=== PATIENT | male | born 1975 | race African-American/Black ===

== ENCOUNTER 2018-09-03 14:00 | Emergency (ER) | payer OTHER ==
[2018-09-03] MEDS ORDERED: ONDANSETRON HCL INJ/PF 4 MG/2 ML SDV IV ONE (15:02)
[2018-09-03] MEDS ORDERED: NORMAL SALINE 1000 ML 1,000 ML IV ONE (15:02)
--- NOTE | 2018-09-03 15:02 | ER Document Report ---
ED Medical Screen (RME) - General Chief Complaint: Headache >24 hrs old Stated Complaint: HEADACHE Time Seen by Provider: 09/03/18 14:55 TRAVEL OUTSIDE OF THE [place] IN LAST 30 DAYS: No - HPI Notes: 09/03/18 15:03 Patient is a 42 yr old male that presents to the emergency department for chief complaint of worst headache of life, started approximately 4 days ago, reports nausea is states he does not have a history of headaches. headache is frontal. Father from a brain aneurysm at age 56. Does not have a primary care provider. not eating but drinking minimally. Denies fevers, chills, c hest pain,palpitations, shortness of breath, dyspnea, nausea, vomiting, diarrhea, abdominal pain, hematuria,blurred vision, double vision, loss of vision, speech changes, LH, dizziness, syncope, neck pain, weakness, bowel or bladder dysfunction, saddle anesthesia, numbness or tingling in bilateral upper or lower extremities equally, muscle paralysis, weakness in bilateral upper or lower extremities equally or rash. ROS: Other than noted above, the 12 point review of systems was reviewed with the patient and were negative, all pertinent findings are included in the HPI. PHYSICAL EXAMINATION: Vital signs reviewed. GENERAL: Well-appearing, well-nourished and in no acute distress. HEAD: Atraumatic, normocephalic. NECK: Normal range of motion CV: Heart regular rate and rhythm LUNGS: No respiratory distress Musculoskeletal: Normal range of motion NEUROLOGICAL: Normal speech, normal gait PSYCH: Normal mood, normal affect. MDM: Patient seen and examined for rapid initial assessment. Vital signs reviewed. A comprehensive ED assessment and evaluation of the patient, analysis of test results and completion of the medical decision making process will be conducted by additional ED providers. *Note is created using voice recognition software and may contain spelling, syntax or grammatical errors. 09/03/18 15:05 09/03/18 15:09 - Related Data Allergies/Adverse Reactions: No Known Allergies Allergy (Verified 09/03/18 14:15) Physical Exam - Vital signs Vitals: Temp Pulse Resp BP Pulse Ox 99.1 F 84 20 158/87 H 96 09/03/18 14:20 09/03/18 14:20 09/03/18 14:20 09/03/18 14:20 09/03/18 14:20 Course - Vital Signs Vital signs: Temp Pulse Resp BP Pulse Ox 99.1 F 84 20 158/87 H 96 09/03/18 14:20 09/03/18 14:20 09/03/18 14:20 09/03/18 14:20 09/03/18 14:20
[2018-09-03 15:46] LABS: ABSOLUTE LYMPHOCYTES (AUTO) 1.2 10^3/uL (0.5-4.7); ABSOLUTE MONOCYTES (AUTO) 1.1 10^3/uL (0.1-1.4); ABSOLUTE NEUT (AUTO) 5.6 10^3/uL (1.7-8.2); BASOPHILS % (AUTO) 0.3 % (0-2); EOSINOPHILS % (AUTO) 0.1 % (0-6); HEMATOCRIT 45.7 % (37.9-51.0); HEMOGLOBIN 15.8 g/dL (13.5-17.0); MEAN CORPUSCULAR HGB CONC 34.5 g/dL (32.0-36.0); MEAN CORPUSCULAR VOLUME 78 fl (80-97); MONOCYTES % (AUTO) 13.5 % (3-13); PLATELET COUNT 183 10^3/uL (150-450); RED BLOOD COUNT 5.84 10^6/uL (4.35-5.55); RED CELL DISTRIBUTION WIDTH 13.8 % (11.5-14.0); SEGMENTED NEUTROPHILS % (AUTO) 71.1 % (42-78); TOTAL CELLS COUNTED % (AUTO) 100 %; WHITE BLOOD COUNT 7.8 10^3/uL (4.0-10.5)
[2018-09-03 15:51] LABS: INTERNATIONAL RATION (INR) 1.01; PROTHROMBIN TIME 13.3 SEC (11.4-15.4)
[2018-09-03 15:52] LABS: PARTIAL THROMBOPLASTIN TIME 25.4 SEC (23.5-35.8)
[2018-09-03 16:02] LABS: ALANINE AMINOTRANSFERASE 25 U/L (21-72); ALBUMIN 4.5 g/dL (3.5-5.0); ALKALINE PHOSPHATASE 67 U/L (38-126); ANION GAP 9 (5-19); ASPARTATE AMINO TRANSFERASE 27 U/L (17-59); BILIRUBIN,DIRECT 0.2 mg/dL (0.0-0.4); BILIRUBIN,TOTAL 0.6 mg/dL (0.2-1.3); BLOOD UREA NITROGEN 12 mg/dL (7-20); CALCIUM 9.8 mg/dL (8.4-10.2); CARBON DIOXIDE 30 mmol/L (22-30); CHLORIDE 100 mmol/L (98-107); GLUCOSE 123 mg/dL (75-110); POTASSIUM 4.2 mmol/L (3.6-5.0); SODIUM 138.6 mmol/L (137-145); TOTAL PROTEIN 8.1 g/dL (6.3-8.2)
--- NOTE | 2018-09-03 16:31 | RADIOLOGY REPORT (SQ) ---
EXAM DESCRIPTION: CT HEAD WITHOUT COMPLETED DATE/TIME: 09/03/2018 4:20 pm REASON FOR STUDY: worst BOLAÑOS of life, no hx of BOLAÑOS COMPARISON: None. TECHNIQUE: Axial images acquired through the brain without intravenous contrast. Images reviewed wi th bone, brain and subdural windows. Additional sagittal and coronal reconstructions were generated. Images stored on PACS. All CT scanners at this facility use dose modulation, iterative reconstruction, and/or weight based d osing when appropriate to reduce radiation dose to as low as reasonably achievable (ALARA). [facility]: Dose Right [facility]: CareDose [facility]: Dose Right [facility]: Teradose 4D [facility]: Vinny RADIATION DOSE: CT Rad equipment meets quality standard of care and radiation dose reduction techniq ues were employed. CTDIvol: 53.2 mGy. DLP: 991 mGy-cm. mGy. LIMITATIONS: None. FINDINGS: VENTRICLES: Normal size and contour. CEREBRUM: No masses. No hemorrhage. No midline shift. No evidence for acute infarction. Normal gra y/white matter differentiation. No areas of low density in the white matter. CEREBELLUM: No masses. No hemorrhage. No alteration of density. No evidence for acute infarction. EXTRAAXIAL SPACES: No fluid collections. No masses. ORBITS AND GLOBE: No intra- or extraconal masses. Normal contour of globe without masses. CALVARIUM: No fracture. PARANASAL SINUSES: No fluid or mucosal thickening. SOFT TISSUES: No mass or hematoma. OTHER: No other significant finding. IMPRESSION: NORMAL BRAIN CT WITHOUT CONTRAST. EVIDENCE OF ACUTE STROKE: NO. COMMENT: Quality ID # [id number]: Final reports with documentation of one or more dose reduction techniques (e.g., Automated exposure control, adjustment of the mA and/or kV according to patient size, use of iterative reconstruction technique) TECHNICAL DOCUMENTATION: JOB ID: [id number]- All Rights Reserved Reading location - IP/workstation name: [email or web address]
[2018-09-03] MEDS ORDERED: METOCLOPRAMIDE HCL INJ/PF 10 MG/2 ML SDV IV ONE (19:53)
[2018-09-03] MEDS ORDERED: RINGERS SOLUTION,LACTATED 1,000 ML IV ONE (19:53)
[2018-09-03] MEDS ORDERED: DIPHENHYDRAMINE HCL 50 MG/ML VIAL IV ONE (19:53)
[2018-09-03] MEDS ORDERED: DIAZEPAM 5 MG TABLET PO ONE (19:58)
--- NOTE | 2018-09-03 19:58 | ER Document Report ---
ED General - General Chief Complaint: Headache >24 hrs old Stated Complaint: HEADACHE Time Seen by Provider: 09/03/18 14:55 Mode of Arrival: Ambulatory Information source: Patient, Relative Notes: 42-year-old male with no reported past medical history presents with complaint of headache that started 4 days prior to arrival. Patient states that his headache was gradual in onset and started Saturday evening. The patient was able to go to sleep but then when he awoke noticed that he still had a headache which he states is located on the top of his head and described as an intermittent throbbing pain. Patient states that he went to the beach all day Saturday and was out in the heat for several hours and reports that the headache persisted. Patient reports photophobia and nausea but denies any vomiting, fever, sick contacts, neck pain, slurred speech, difficulty with ambulation, trauma to the head. Patient has tried taking 400 mg of Motrin this afternoon without relief. He takes no medications daily. He does report that his father of a brain aneurysm at the age of 56. Patient also reports associated nasal congestion. Patient is here from [place] on vacation with his family. TRAVEL OUTSIDE OF THE [place] IN LAST 30 DAYS: No - HPI Onset: Other Onset/Duration: Gradual, Persistent, Worse Quality of pain: Throbbing Severity: Moderate Pain Level: 2 Associated symptoms: Headache, Sinus pain/drainage. denies: Fever Exacerbated by: Coughing, Other - Laughing Relieved by: Denies Similar symptoms previously: No Recently seen / treated by doctor: No - Related Data Allergies/Adverse Reactions: No Known Allergies Allergy (Verified 09/03/18 14:15) Past Medical History - General Information source: Patient - Social History Smoking Status: Never Smoker Frequency of alcohol use: Rare Drug Abuse: None Lives with: Spouse/Significant other Family History: Reviewed & Not Pertinent Patient has suicidal ideation: No Patient has homicidal ideation: No - Medical History Medical History: Negative Renal/ Medical History: Denies: Hx Peritoneal Dialysis Review of Systems - Review of Systems Notes: REVIEW OF SYSTEMS: CONSTITUTIONAL : Denies fever, chills, or sweats. Denies recent illness. Denies weight loss, recent hospitalizations. EENT: Denies visual changes, eye pain. Denies sore throat, oral lesions, difficulty swallowing. CARDIOVASCULAR: Denies chest pain. Denies palpitations. Denies lower extremity edema. RESPIRATORY: Denies cough. Denies shortness of breath, wheezing. GASTROINTESTINAL: Denies abdominal pain or distention. Denies nausea, vomiting, or diarrhea. Denies blood in vomitus, stools, or per rectum. Denies black, tarry stools. Denies constipation. GENITOURINARY: Denies difficulty urinating, painful urination, frequency, blood in urine, testicular pain or penile discharge. MUSCULOSKELETAL: Denies back or neck pain or stiffness. Denies joint pain or swelling. SKIN: Denies rash, lesions or sores. HEMATOLOGIC : Denies easy bruising or bleeding. LYMPHATIC: Denies swollen glands. NEUROLOGICAL: Denies confusion or altered mental status. Denies loss of consciousness. Denies dizziness or lightheadedness. Denies weakness or paralysis. Denies problems difficulty with ambulation, slurred speech. Denies sensory loss, numbness, or tingling. Denies seizures. PSYCHIATRIC: Denies anxiety or stress. Denies depression, suicidal ideation, or Physical Exam - Vital signs Vitals: Temp Pulse Resp BP Pulse Ox 99.1 F 84 20 158/87 H 96 09/03/18 14:20 09/03/18 14:20 09/03/18 14:20 09/03/18 14:20 09/03/18 14:20 - Notes Notes: PHYSICAL EXAMINATION: GENERAL: Well-appearing, well-nourished and in no acute distress. HEAD: Atraumatic, normocephalic. EYES: Pupils equal round and reactive to light, extraocular movements intact, sclera anicteric, conjunctiva are normal. ENT: Nares patent, oropharynx clear without exudates. Moist mucous membranes. NECK: Normal range of motion, supple without lymphadenopathy. No nuchal rigidity, meningismus. LUNGS: Breath sounds clear to auscultation bilaterally and equal. No wheezes rales or rhonchi. HEART: Regular rate and rhythm without murmurs ABDOMEN: Soft, nontender, nondistended abdomen. No guarding, no rebound. No masses appreciated. Musculoskeletal: Normal range of motion, no pitting or edema. No cyanosis. NEUROLOGICAL: Cranial nerves grossly intact. Normal speech, normal gait. Normal sensory, motor exams PSYCH: Normal mood, normal affect. SKIN: Warm, Dry, normal turgor, no rashes or lesions noted. Course - Re-evaluation Re-evalutation: 09/03/18 19:58 Laboratory 09/03/18 09/03/18 09/03/18 15:20 15:20 15:20 WBC 7.8 RBC 5.84 H Hgb 15.8 Hct 45.7 MCV 78 L MCH 27.0 MCHC 34.5 RDW 13.8 Plt Count 183 Seg Neutrophils % 71.1 Lymphocytes % 15.0 Monocytes % 13.5 H Eosinophils % 0.1 Basophils % 0.3 Absolute Neutrophils 5.6 Absolute Lymphocytes 1.2 Absolute Monocytes 1.1 Absolute Eosinophils 0.0 Absolute Basophils 0.0 PT 13.3 INR 1.01 APTT 25.4 Sodium 138.6 Potassium 4.2 Chloride 100 Carbon Dioxide 30 Anion Gap 9 BUN 12 Creatinine 0.86 Est GFR ( Amer) > 60 Est GFR (Non-Af Amer) > 60 Glucose 123 H Calcium 9.8 Total Bilirubin 0.6 Direct Bilirubin 0.2 Neonat Total Bilirubin Not Reportable Neonat Direct Bilirubin Not Reportable Neonat Indirect Bili Not Reportable AST 27 ALT 25 Alkaline Phosphatase 67 Total Protein 8.[address] 09/03/18 15:02 IMPRESSION: NORMAL BRAIN CT WITHOUT CONTRAST. EVIDENCE OF ACUTE STROKE: NO. Temp Pulse Resp BP Pulse Ox 99.1 F 84 20 158/87 H 96 09/03/18 14:20 09/03/18 14:20 09/03/18 14:20 09/03/18 14:20 09/03/18 14:20 09/03/18 21:23 Patient reports improvement of his headache after receiving Reglan, Benadryl and IV fluids. He currently rates his headache as a 2. He appears comfortable, nontoxic. He has no nuchal rigidity, neuro deficits. Exam is completely normal. CT of the head shows no acute process. CTA was obtained due to the patient's family history of aneurysm. Awaiting results. I did speak to the patient regarding the next step being a lumbar puncture if he does not have complete resolution of his headache. Patient is declining at this time. 09/03/18 21:31 CTA reviewed and showed no evidence of aneurysm. Did discuss lumbar puncture again with the patient and his significant other who is at the bedside and the patient is declining. Patient's headache was not acute in onset, pain was not maximal at time of onset or associated with fever or trauma. Patient has no other symptoms except for nasal congestion. Patient was provided copies of all of his imaging that was performed today and encouraged to return if headache persists, he develops a fever or any other symptoms concerning to him. 09/03/18 21:47 Patient was discharged home in stable condition and encouraged to return if headache persists. - Vital Signs Vital signs: Temp Pulse Resp BP Pulse Ox 98.1 F 67 16 139/98 H 100 09/03/18 20:49 09/03/18 20:49 09/03/18 20:49 09/03/18 20:49 09/03/18 20:49 - Laboratory Result Diagrams: 09/03/18 15:20 09/03/18 15:20 Laboratory results interpreted by me: 09/03/18 09/03/18 09/03/18 15:20 15:20 19:58 RBC 5.84 H MCV 78 L Monocytes % 13.5 H Glucose 123 H Urine Glucose (UA) 50 H - Diagnostic Test Radiology reviewed: Image reviewed, Reports reviewed Discharge - Discharge Clinical Impression: Glucosuria Headache Qualifiers: Headache type: unspecified Headache chronicity pattern: unspecified pattern Intractability: not intractable Qualified Code(s): R51 - Headache Condition: Good Disposition: HOME, SELF-CARE Instructions: Headache ([facility]) Additional Instructions: Follow up with your [id number] hours for further care or return to the ED IMMEDIATELY if symptoms worsen or you have any concerns. If you cannot afford to follow up with your primary care physician a list of low cost clinics have been provided at the end of your discharge papers as well. Most prescribed medications have multiple side effects. The safest thing to do is when filling your prescription speak to your pharmacist regarding possible interactions with your normal home medications and over the counter medications such as Ibuprofen, Tylenol, Benadryl. If you experience any symptoms that cause you discomfort or concern you should discontinue the medication immediately and return to the emergency room or call your primary care physician. Prescriptions: Metoclopramide HCl [Reglan 10 mg Tablet] 1 tab PO Q8H PRN #10 tablet PRN Reason: For Headache Forms: Elevated Blood Pressure
[2018-09-03 20:17] LABS: APPEARANCE,URINE CLEAR; BILIRUBIN,URINE NEGATIVE (NEGATIVE); COLOR,URINE YELLOW; GLUCOSE, URINE 50 mg/dL (NEGATIVE); KETONES,URINE NEGATIVE (NEGATIVE); LEUKOCYTE ESTERASE,URINE NEGATIVE (NEGATIVE); NITRITE,URINE NEGATIVE (NEGATIVE); PROTEIN,URINE NEGATIVE (NEGATIVE); URINE SPECIFIC GRAVITY 1.027; UROBILINOGEN,URINE NEGATIVE mg/dL (<2.0)
[2018-09-03 20:50] VITALS: BP 139/98
--- NOTE | 2018-09-03 21:21 | RADIOLOGY REPORT (SQ) ---
EXAM DESCRIPTION: CT angiogram of the head. CLINICAL HISTORY: 42 years Male . Severe headache. Family h/o aneurysm COMPARISON: Noncontrast CT head from today. TECHNIQUE: Study performed with IV contrast. MIP reconstruction. 17 mL Omnipaque 350. This exam was performed according to our departmental dose-optimization program, which includes automated exposure control, adjustment of the mA and/or kV according to patient size and/or use of iterative reconstruction technique. FINDINGS: Distal vertebral arteries, basilar artery are unremarkable. Hypoplastic right P1 segment of the posterior circulation. Small patent right posterior communicating artery. Unremarkable distal internal carotid middle and anterior cerebral arteries. No suspicious stenosis. No suspicious aneurysm. IMPRESSION: 1. Variations of the [place]. 2. No suspicious aneurysm or other arterial abnormality.
[2018-09-03] MEDS ORDERED: DEXAMETHASONE 4 MG TABLET PO ONE (21:24)
[2018-09-03] MEDS ORDERED: KETOROLAC TROMETHAMINE INJ/PF 30 MG/1 ML SDV IV ONE (21:25)
== END 2018-09-03 22:05 | disposition home or self-care (01) ==
LOC: ER 14:00
DX: R81 Glycosuria (principal); R51 Headache; R05 Cough
CPT/HCPCS: 99284; 96361; 96374; 96375; 36415; 85025; 85610; 85730; 80053; 81001; 70450; 70496; J1200; J1885; J2765; J2405; J7030; J7120